=== PATIENT | female | born 1950 | race Caucasian/White ===

== ENCOUNTER 2020-12-19 12:30 | Emergency (ER) | payer MEDICARE ==
--- NOTE | 2020-12-19 13:38 | EDM.PDOC ---
ED HPI GENERAL MEDICAL PROBLEM - General Chief Complaint: Respiratory Problem Stated Complaint: POSSIBLE HAS PNEUMONIA Time Seen by Provider: 12/19/20 13:20 Source of Information: Reports: Patient, RN. Denies: Old Records History Limitations: Reports: Other (no old records) - History of Present Illness INITIAL COMMENTS - FREE TEXT/NARRATIVE: 70 yo female with a pHx of interstitial lung dz presents with a 3 week hx of intermittent fevers, a productive cough(colored sputum), and malaise. She is on home oxygen for her dz. 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 She came here "because her kids don't have alesha in [facility]". Has had no Covid vaccines. Has not been seen in the 3 weeks since she became ill. Onset: Gradual Duration: Week(s): (3), Getting Worse Location: Reports: Chest Quality: Reports: Other (no pain reported) Severity: Moderate (respiratory sx's) Improves with: Reports: None Worsens with: Reports: Other (time) Context: Reports: Other (See HPI) Associated Symptoms: Reports: Cough, Fever/Chills (intermittent), Shortness of Breath. Denies: Nausea/Vomiting, Rash Treatments CATTLE MANAGER: Reports: Other (see below) (none) Left Middle Back Pain Score (Numeric/FACES): 6 - Related Data Allergies Allergy/AdvReac Type Severity Reaction Status Date / Time No Known Allergies Allergy Verified 12/19/20 12:59 Home Meds: Home Meds Azithromycin 250 mg PO DAILY #4 tablet 12/19/20 [Rx] FLUoxetine [PROzac] 60 mg PO DAILY 12/19/20 [History] Gabapentin [Neurontin] 300 mg PO QID 12/19/20 [History] Ipratropium/Albuterol Sulfate [Iprat-Albut 0.5-3(2.5) MG/3 ML] 3 ml IH BID PRN 12/19/20 [History] Levothyroxine [Synthroid] 50 mcg PO ACBREAKFAST 12/19/20 [History] Omeprazole 20 mg PO DAILY 12/19/20 [History] Simvastatin 80 mg PO DAILY 12/19/20 [History] lisinopriL [Lisinopril] 5 mg PO DAILY 12/19/20 [History] Past Medical History HEENT History: Reports: Macular Degeneration Cardiovascular History: Reports: Hypertension Respiratory History: Reports: Interstitial Lung Disease 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 CARRIER 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 Denies: Hemoptysis Cardiovascular: Reports: No Symptoms GI/Abdominal: Reports: No Symptoms : Reports: No Symptoms Musculoskeletal: Reports: No Symptoms Skin: Reports: No Symptoms Neurological: Reports: No Symptoms ED EXAM, GENERAL - Physical Exam Exam: See Below Exam Limited By: No Limitations General Appearance: Alert, WD/WN, Mild Distress Eye Exam: Bilateral Eye: Normal Inspection Ears: Normal External Exam, Normal Canal, Hearing Grossly Normal Ear Exam: Bilateral Ear: Auricle Normal, Canal Normal Nose: Normal Inspection, No Blood Throat/Mouth: Normal Inspection, Normal Lips, Normal Oropharynx, Normal Voice, No Airway Compromise Head: Atraumatic, Normocephalic Neck: Normal Inspection Respiratory/Chest: No Accessory Muscle Use, Crackles (in all lung santos). No: No Respiratory Distress, Lungs Clear, Normal Breath Sounds GI/Abdominal: Soft, Non-Tender Back Exam: Normal Inspection Extremities: Normal Inspection, Normal Range of Motion, Non-Tender, No Pedal Edema Neurological: Alert, Oriented, CN II-XII Intact, Normal Cognition, No Motor/Sensory Deficits Psychiatric: Normal Affect, Normal Mood Skin Exam: Warm, Dry, Intact, Normal Color, No Rash Course - Vital Signs Last Recorded V/S: Last Vital Signs Temp 36.6 C 12/19/20 12:53 Pulse 59 L 12/19/20 12:53 Resp 26 H 12/19/20 12:53 BP 171/81 H 12/19/20 12:53 Pulse Ox 87 L 12/19/20 12:53 - Orders/Labs/Meds Orders: Active Orders 24 hr Category Date Time Status Oxygen Therapy Adult [Oxygen Therapy, ED] [RC] Care 12/19/20 13:32 Active ASDIRECTED CORONAVIRUS COVID-19 [facility] [[facility]LE[facility]] Stat Lab 12/19/20 13:50 Ordered UA W/MICROSCOPIC [URIN] Stat Lab 12/19/20 14:24 Ordered Labs: Laboratory Tests 12/19/20 12/19/20 Range/Units 13:43 13:43 WBC 10.8 (4.5-11.0) K/uL RBC 3.76 (3.30-5.50) M/uL Hgb 12.0 (12.0-15.0) g/dL Hct 37.6 (36.0-48.0) % MCV 100 H (80-98) fL MCH 32 H (27-31) pg MCHC 32 (32-36) % Plt Count 261 (150-400) K/uL Sodium 136 L (140-148) mmol/L Potassium 3.8 (3.6-5.2) mmol/L Chloride 98 L (100-108) mmol/L Carbon Dioxide 28 (21-32) mmol/L Anion Gap 13.8 (5.0-14.0) mmol/L BUN 12 (7-18) mg/dL Creatinine 0.7 (0.6-1.0) mg/dL Est Cr Clr Drug Dosing 60.09 mL/min Estimated GFR (MDRD) > 60 (>60) Glucose 126 H (74-106) mg/dL Calcium 9.0 (8.5-10.1) mg/dL C-Reactive Protein 15.19 H (0.0-0.3) mg/dL Meds: Medications Discontinued Medications Generic Name Dose Route Start Last Admin Trade Name Kobiq PRN Reason Stop Dose Admin Azithromycin 500 mg 12/19/20 14:33 Azithromycin 250 Mg Tab PO 12/19/20 14:34 ONETIME ONE - Radiology Interpretation Free Text/Narrative:: CXR- - Re-Assessments/Exams Free Text/Narrative Re-Assessment/Exam: 12/19/20 14:03 Refused Covid testing. Departure - Departure Time of Disposition: 14:45 Disposition: Home, Self-Care 01 Condition: Fair Clinical Impression: Respiratory infection - Discharge Information *PRESCRIPTION DRUG MONITORING PROGRAM REVIEWED*: No *COPY OF PRESCRIPTION DRUG MONITORING REPORT IN PATIENT JOSEFINA: No Prescriptions: Azithromycin 250 mg PO DAILY #4 tablet Referrals: PCP,None [Primary Care Provider] - Forms: ED Department Discharge Additional Instructions: Add azithromycin to your regular medications taking one dose every 24 hrs. Recheck with your provider early next week, return if worse. Sepsis Event Note (ED) - Evaluation Sepsis Screening Result: No Definite Risk - Focused Exam Vital Signs: Vital Signs Temp Pulse Resp BP Pulse Ox 12/19/20 12:53 36.6 C 59 L 26 H 171/81 H 87 L - My Orders Last 24 Hours: My Active Orders 12/19/20 13:32 Oxygen Therapy Adult [Oxygen Therapy, ED] [] ASDIRECTED 12/19/20 13:50 CORONAVIRUS COVID-19 [facility] [[facility]LEC] Stat 12/19/20 14:24 UA W/MICROSCOPIC [URIN] Stat - Assessment/Plan Last 24 Hours: My Active Orders 12/19/20 13:32 Oxygen Therapy Adult [Oxygen Therapy, ED] [] ASDIRECTED 12/19/20 13:50 CORONAVIRUS COVID-19 [facility] [[facility]LEC] Stat 12/19/20 14:24 UA W/MICROSCOPIC [URIN] Stat
[2020-12-19] MEDS ORDERED: Azithromycin 250 MG Tab PO ONE (14:33)
--- NOTE | 2020-12-19 14:34 | CR ---
CHEST: 2 view CLINICAL HISTORY:Cough, SOB, history interstitial lung disease COMPARISON:None available FINDINGS: Heart size is normal. Pulmonary vascularity is obscured by diffuse bilateral predominantly interstitial infiltrate and/or pulmonary fibrosis. There are no effusions. IMPRESSION: Severe diffuse predominantly interstitial lung disease which is likely chronic. This is most commonly IPF. It would be difficult to exclude superimposed acute infiltrate
== END 2020-12-19 14:50 | disposition home or self-care (01) ==
LOC: JP.ED 12:30
DX: J98.8 Other specified respiratory disorders (principal); E03.9 Hypothyroidism, unspecified; I10 Essential (primary) hypertension; Z79.899 Other long term (current) drug therapy
CPT/HCPCS: 36415; 71046; 80048; 81001; 85027; 86140; 99283; A9270